=== PATIENT | female | born 1990 ===

== ENCOUNTER 2021-08-15 13:00 | Inpatient (IN) | payer OTHER ==
[~2021-08-15] VITALS: Ht 165.1 cm; Wt 2.7 kg
[2021-08-23] MEDS ORDERED: PRENATAL CAPLE1 EAC1 PO (06:10)
== END 2021-08-26 15:04 | disposition home or self-care (01) | DRG 788 ==
LOC: LDR 08-23 05:48 → SURG-SUITE 08-23 18:37 → OB/GYN 08-28 13:00
PROVIDERS: Obstetrics & Gynecology; ADMIT Obstetrics & Gynecology; ATTEND Obstetrics & Gynecology
PROC: 4A1HXCZ Monitoring of Products of Conception, Cardiac Rate, External Approach (ICD-10-PCS; 2021-08-23)
PROC: 10D00Z1 Extraction of Products of Conception, Low, Open Approach (ICD-10-PCS; principal; 2021-08-23 17:00)
DX: O62.0 Primary inadequate contractions (principal); Z3A.39 39 weeks gestation of pregnancy; Z37.0 Single live birth; Z20.822 Contact with and (suspected) exposure to COVID-19